=== PATIENT | female | born 1980 | race Two or more races ===

== ENCOUNTER 2017-05-24 16:52 | Emergency (ER) | payer MEDICAID ==
[~2017-05-24] VITALS: Ht 172.7 cm; Wt 84.0 kg
[2017-05-24 17:04] VITALS: BP 150/90
[2017-05-24] MEDS ORDERED: IPRATROPIUM BROM 0.5 MG/2.5ML INH SOL NEB ONE (17:45)
[2017-05-24] MEDS ORDERED: methylPREDNISolone SOD SUCC 125 MG/2 ML VL IM ONE (17:45)
[2017-05-24] MEDS ORDERED: ALBUTEROL SULF 2.5 MG/0.5ML(0.5%) NEB SOLN NEB ONE (17:45)
== END 2017-05-24 18:32 | disposition home or self-care (01) ==
LOC: ER 16:57
DX: J45.909 Unspecified asthma, uncomplicated (principal); E11.9 Type 2 diabetes mellitus without complications; E78.5 Hyperlipidemia, unspecified
CPT/HCPCS: 71046; 94640; 96372; 99284; J2930

== ENCOUNTER 2020-06-08 02:28 | Emergency (ER) | payer MEDICAID ==
[~2020-06-08] VITALS: Ht 170.2 cm; Wt 86.2 kg
[2020-06-08] MEDS ORDERED: SODIUM CHLORIDE 0.9% 1,000 ML IV ONE (04:45)
[2020-06-08] MEDS ORDERED: ACETAMINOPHEN 325 MG TAB PO ONE (04:45)
[2020-06-08] MEDS ORDERED: METOCLOPRAMIDE HCL 5MG/ml INJ 2ml VIAL IV ONE (04:45)
[2020-06-08 10:00] VITALS: BP 111/80
== END 2020-06-08 10:59 | disposition home or self-care (01) ==
LOC: EDBD 02:28 → EDUNIT# 02:28 → ER 02:36
DX: R51.9 Headache, unspecified (principal); I10 Essential (primary) hypertension; C18.9 Malignant neoplasm of colon, unspecified; E78.5 Hyperlipidemia, unspecified; E11.9 Type 2 diabetes mellitus without complications
CPT/HCPCS: 96361; 96374; 99283; J2765; J7030